=== PATIENT | male | born 1950 | race Caucasian/White ===

== ENCOUNTER → 2021-07-19 13:29 | Outpatient (BNVA) | payer MEDICARE, SELFPAY | PROVIDERS: Visit Provider Surgery Vascular Surgery | DX: I82.409 Acute embolism and thrombosis of unspecified deep veins of unspecified lower extremity (principal) | CPT/HCPCS: 99202 ==

== ENCOUNTER 2021-07-21 14:05 | Outpatient (REF) | payer MEDICARE, SELFPAY ==
--- NOTE | ~2021-07-21 | US_ITS ---
EXAMINATION: US VENOUS ULTRASOUND WITH DOPPLER LOWER EXTREMITY, LEFT CLINICAL INFORMATION: Rule out DVT left lower extremity COMPARISON: None at this time. Will attempt to obtain old outside studies and if they can be obtained an addendum will be made. TECHNIQUE: Ultrasound of the deep veins is performed from the hip to the calf with compression sonography and color and pulse Doppler assessment. Spectral analysis with color-flow imaging is performed. FINDINGS: There is normal venous compression and respiratory variation and augmented flow within the common femoral vein, proximal superficial femoral vein, and mid superficial femoral vein.. There is noted to be filling defect present within the distal femoral vein and popliteal vein with some recanalization. Some areas of filling defects are more echogenic than others. This may represent chronic, and or chronic and acute deep venous thrombosis. If patient has had studies previously these would be of help in further evaluation to determine possible chronicity. There is no significant popliteal fossa cyst. No popliteal artery aneurysm. US/US venous duplex LE LT IMPRESSION: Filling defects with some regions of somewhat echogenic thrombus and recanalization within the distal superficial femoral vein and popliteal vein. The appearance could be related to chronic DVT which is recannulating or acute on chronic deep venous thrombosis. Comparison with previous outside studies is recommended. This critical result was discussed with Dr. Holley at 3:56 PM on July 21, 2021 and it was ascertained that the content and urgency of the report was understood at the time of direct communication.
== END 2021-07-21 14:06 | disposition home or self-care (01) ==
LOC: HO.HMGCX 14:05
PROVIDERS: Visit Provider Surgery Vascular Surgery
DX: I82.402 Acute embolism and thrombosis of unspecified deep veins of left lower extremity (principal)
CPT/HCPCS: 93971

== ENCOUNTER → 2021-07-25 08:56 | Outpatient (BNVA) | payer MEDICARE, SELFPAY | PROVIDERS: PCP Internal Medicine; Visit Provider Surgery Vascular Surgery | DX: I82.409 Acute embolism and thrombosis of unspecified deep veins of unspecified lower extremity (principal) | CPT/HCPCS: 99212 ==

== ENCOUNTER 2021-07-27 07:12 | Day surgery (SDC) | payer MEDICARE, SELFPAY ==
[2021-07-27] VITALS (8 sets, daily range): BP systolic 146–187; BP diastolic 72–94; PULSE 56–63; RESP 18; TEMP 36.4–36.6; O2SAT 98–99; BMI 36.2
--- NOTE | 2021-07-27 11:43 | P.OP_ITS ---
Operative Note Operative Note Date of Service: 07/27/21 Narrative: Angiogram report from [facility] Preoperative diagnosis: DVT Postoperative diagnosis: Same Procedure: 1. Ultrasound-guided right common femoral vein access 2. Vena cavogram 3. Insertion of vena cava filter Surgeon:Nicholas Holley M.D., FACS, RPVI Senior Sharepoint Developer:None Anesthesia: Local with moderate conscious sedation. Total intraservice moderate sedation time was 22 minutes. I monitored the patient's level of consciousness and physiologic status continuously throughout the procedure. Specimens:none Drains:none Estimated blood loss: Less than 10 ml Implant: [employer] Filter Indications: 71-year-old gentleman with a history of DVT in April. On subsequent follow-up in May and most recently 2-3 days prior there is concern of extension of this clot while on anticoagulants. He now presents for IVC filter placement patient has signed the informed consent after reviewing risks, complications, benefits, and alternatives previously discussed with the patient. The patient was given the opportunity to ask any additional questions or voice any concerns. All questions were answered to the patient's satisfaction. Procedure in detail: Patient was brought to the angiography suite prior to which a time-out was called for patient identification and site verification. Bilateral groins were prepped and draped in the standard surgical fashion. Under ultrasound guidance right common femoral vein was punctured with arterial entry needle and a subsequent Bentson wire was then advanced. We then exchanged out for 6 Syriac sheath. Through this a vena cavogram was then undertaken. We then brought in the sheath for the IVC filter. This was brought into position b elow the renal veins. Subsequent to this we then deployed the bar did now it filter. This was placed in the L2-L3 interspace. Completion vena cavogram demonstrated excellent result. Sheath was then removed. Direct pressure was held for 10 minutes. Patient tolerated the procedure well. Interpretation of films: 1. Ultrasound demonstrates appropriate femoral puncture. Image of which was saved. 2. Vena cavogramdemonstrates appropriate caliber vena cava of less than 3 cm. No evidence of thrombus or clot. 3. Completion vena cavogram demonstrated appropriate placement of filter. Conclusion: 1. Successful IVC filter placement 2. Anticoagulation status: Resume Eliquis tonight This note is constructed using voice recognition software. While every effort has been made to ensure accuracy, diesel fleet mechanic errors may have been included. Thank you for allowing me to participate in the care of your patient. Yours sincerely, Nicholas Holley MD, FACS, R.P.V.I.
== END 2021-07-27 13:40 | disposition home or self-care (01) ==
PROVIDERS: Visit Provider Surgery Vascular Surgery
DX: I82.409 Acute embolism and thrombosis of unspecified deep veins of unspecified lower extremity (principal); Z79.02 Long term (current) use of antithrombotics/antiplatelets
CPT/HCPCS: 37191; 99152; C1769; C1880; C1894; J2250; J3010; Q9967

== ENCOUNTER → 2021-08-09 15:21 | Outpatient (BNVA) | payer MEDICARE, SELFPAY | PROVIDERS: Visit Provider Surgery Vascular Surgery | DX: I82.409 Acute embolism and thrombosis of unspecified deep veins of unspecified lower extremity (principal) | CPT/HCPCS: 99212 ==